=== PATIENT | male | born 1945 | race Caucasian/White ===

== ENCOUNTER 2019-09-11 18:20 | Observation (INO) | payer MEDICARE, OTHER ==
[~2019-09-11] VITALS: Ht 172.7 cm; Wt 91.5 kg
[2019-09-11] MEDS ORDERED: MAALOX/HYOSCYAMINE/LIDOCAINE 45 ML BTL PO ONE (18:30)
[2019-09-11] MEDS ORDERED: SODIUM CHLORIDE FLUSH 10ML SYR IVF ONE (18:30)
[2019-09-11] MEDS ORDERED: MAALOX/HYOSCYAMINE/LIDOCAINE 45 ML BTL ONE (18:41)
[2019-09-11 19:03] LABS: BASOPHILS # (AUTO) 0.02 x10^3/uL (0-0.1); BASOPHILS % (AUTO) 0 % (0-1); EOSINOPHILS # (AUTO) 0.12 x10^3/uL (0-0.4); EOSINOPHILS % (AUTO) 1 % (1-7); LYMPHOCYTES # (AUTO) 1.03 x10^3/uL (1-3.4); LYMPHOCYTES % (AUTO) 11 % (22-44); MD NO; MEAN CORPUSCULAR HEMOGLOBIN 29.7 pg (27.5-34.5); MEAN CORPUSCULAR HGB CONC 32.7 g/dL (33.2-36.2); MEAN CORPUSCULAR VOLUME 90.9 fL (81-97); MEAN PLATELET VOLUME 8.9 fL (7.4-10.4); MONOCYTES # (AUTO) 0.59 x10^3/uL (0.2-0.8); MONOCYTES % (AUTO) 6 % (2-9); NEUTROPHILS # (AUTO) 7.79 x10^3/uL (1.8-6.8); NEUTROPHILS % (AUTO) 82 % (42-75); PLATELET COUNT 142 x10^3/uL (130-400)
[2019-09-11 19:06] LABS: INTERNATIONAL NORMALIZED RATIO 0.97 (0.93-1.1); PROTHROMBIN TIME 10.3 Seconds (9.6-11.5)
[2019-09-11 19:08] LABS: ALANINE AMINOTRANSFERASE 26 U/L (12-78); ALBUMIN 3.2 g/dL (3.4-5.0); ANION GAP 5 mmol/L (5-15); CALCIUM 9.2 mg/dL (8.5-10.1); CHLORIDE 113 mmol/L (98-107); CREATININE 1.94 mg/dL (0.7-1.3)
[2019-09-11 19:13] LABS: ALKALINE PHOSPHATASE 87 U/L (45-117); BILIRUBIN,TOTAL 0.5 mg/dL (0.2-1.0); TOTAL PROTEIN 6.2 g/dL (6.4-8.2); TROPONIN I < 0.015 ng/mL (0.000-0.045)
[2019-09-11] MEDS ORDERED: MORPHINE SULFATE 4 MG/ML, 1ML ONE (19:41)
[2019-09-11] MEDS ORDERED: LORazepam 2 MG/ML, 1ML ONE (19:42)
--- NOTE | 2019-09-11 19:52 | NUR ---
MEDICATED PER EMAR FOR CONTINUED CHEST/BACK PAIN RATED AT 8/10 REFRACTORY TO GI COCKTAIL
[2019-09-11] MEDS ORDERED: LORazepam 2 MG/ML, 1ML IVPush ONE (20:00)
[2019-09-11] MEDS ORDERED: MORPHINE SULFATE 4 MG/ML, 1ML IVPush ONE (20:00)
--- NOTE | 2019-09-11 20:00 | NUR ---
PAIN IMPROVED TO 2/10 SBP IMPROVED WELL UPDATED ON ESTIMATED POC ORDERED HOSPITAL BED
[2019-09-11] MEDS ORDERED: LISI-170 PO (20:21)
[2019-09-11] MEDS ORDERED: CHOL40002 PO (20:21)
[2019-09-11] MEDS ORDERED: ASPI-496 PO (20:21)
[2019-09-11] MEDS ORDERED: PRED5TAB PO (20:21)
[2019-09-11] MEDS ORDERED: MELA5TAB21 PO (20:21)
[2019-09-11] MEDS ORDERED: TACR1CAP4 PO (20:21)
[2019-09-11] MEDS ORDERED: CALC0.25 PO (20:21)
[2019-09-11] MEDS ORDERED: MYCO500T PO (20:21)
[2019-09-11] MEDS ORDERED: BISO5TAB8 PO (20:21)
[2019-09-11] MEDS ORDERED: OMEP-110 PO (20:21)
[2019-09-11] MEDS ORDERED: DOXA8TAB2 PO (20:21)
[2019-09-11] MEDS ORDERED: SIMV20TA19 PO (20:21)
--- NOTE | 2019-09-11 20:21 | NUR ---
DR. FISCHER (HOSPITALIST) AT BEDSIDE. REPORTS PATIENT ALLOWED TO HAVE CARDIAC DIET DINNER-THEN NPO AT MIDNIGHT
[2019-09-11] MEDS ORDERED: OXYcodone IR 5MG TABLET PO PRN (20:30)
[2019-09-11] MEDS ORDERED: ONDANSETRON 2MG/ML, 2ML IVPush PRN (20:30)
[2019-09-11] MEDS ORDERED: hydrALAzine 20 MG/ML, 1ML IVPush PRN (20:30)
[2019-09-11] MEDS ORDERED: PROMETHAZINE 25 MG/ML, 1ML IM PRN (20:30)
[2019-09-11] MEDS ORDERED: BISACODYL 10 MG SUPP PR PRN (20:30)
[2019-09-11] MEDS ORDERED: morphine SULFATE 10 MG/ML, 1ML IVPush PRN (20:30)
[2019-09-11] MEDS ORDERED: POLYETHYLENE GLYCOL 17 GM PACKET PO PRN (20:30)
[2019-09-11] MEDS ORDERED: DOCUSATE 100 MG CAPSULE PO PRN (20:30)
[2019-09-11] MEDS ORDERED: ONDANSETRON ODT 4 MG PO PRN (20:30)
[2019-09-11] MEDS ORDERED: ACETAMINOPHEN 325 MG TABLET PO PRN (20:30)
[2019-09-11] MEDS ORDERED: NITROGLYCERIN 0.4 MG BOTTLE (25 TABS) SL PRN (20:30)
[2019-09-11] MEDS ORDERED: DOXAZOSIN 2MG TABLET PO SCH (21:00)
[2019-09-11] MEDS ORDERED: MELATONIN 5 MG TABLET PO SCH (21:00)
[2019-09-11] MEDS ORDERED: SIMVASTATIN 20 MG TABLET PO SCH (21:00)
[2019-09-11 21:11] LABS: FREE T4 (FREE THYROXINE) 1.2 ng/dL (0.76-1.46)
--- NOTE | 2019-09-11 21:48 | NUR ---
PATIENT REPORTS HE USES BIPAP 02/01-AALIYAH MADE AWARE-TO CONSULT RT
[2019-09-11] MEDS ORDERED: ALLO100T30 PO (23:24)
[2019-09-11] MEDS: HEPARIN 5,000 UNITS/ML, 1ML SQ SCH (23:56)
[2019-09-11] MEDS: TACROLIMUS 1 MG CAPSULE PO SCH (23:57)
[2019-09-12 00:18] LABS: MICROSCOPIC AUTO
[2019-09-12 00:21] VITALS: BP 180/79
[2019-09-12 00:23] LABS: CULTURE INDICATED? NO
[2019-09-12 02:04] LABS: TROPONIN I < 0.015 ng/mL (0.000-0.045)
[2019-09-12] MEDS ORDERED: ATENOLOL 50 MG TABLET PO SCH (06:00)
[2019-09-12] MEDS ORDERED: ASPIRIN 325 MG TABLET EC PO SCH (06:00)
[2019-09-12 06:08] VITALS: BP 147/83
[2019-09-12 07:20] VITALS: BP 155/90
[2019-09-12] MEDS: HEPARIN 5,000 UNITS/ML, 1ML SQ SCH (08:50)
[2019-09-12] MEDS: TACROLIMUS 1 MG CAPSULE PO SCH (08:50)
[2019-09-12] MEDS ORDERED: LISINOPRIL 10 MG TABLET PO SCH (09:00)
[2019-09-12] MEDS ORDERED: CALCITRIOL 0.25 MCG CAPSULE PO SCH (09:00)
[2019-09-12] MEDS ORDERED: OMEPRAZOLE 20 MG CAPSULE.DR PO SCH (09:00)
[2019-09-12] MEDS ORDERED: CHOLECALCIFEROL 5,000u TAB PO SCH (09:00)
[2019-09-12] MEDS ORDERED: REGADENOSON 0.4 MG/5 ML SYRINGE ONE (09:28)
[2019-09-12 12:59] LABS: BASOPHILS # (AUTO) 0.06 x10^3/uL (0-0.1); BASOPHILS % (AUTO) 1 % (0-1); EOSINOPHILS # (AUTO) 0.02 x10^3/uL (0-0.4); EOSINOPHILS % (AUTO) 0 % (1-7); LYMPHOCYTES # (AUTO) 1.39 x10^3/uL (1-3.4); LYMPHOCYTES % (AUTO) 13 % (22-44); MD NO; MEAN CORPUSCULAR HEMOGLOBIN 29.7 pg (27.5-34.5); MEAN CORPUSCULAR HGB CONC 32.5 g/dL (33.2-36.2); MEAN CORPUSCULAR VOLUME 91.3 fL (81-97); MEAN PLATELET VOLUME 9.6 fL (7.4-10.4); MONOCYTES # (AUTO) 0.75 x10^3/uL (0.2-0.8); MONOCYTES % (AUTO) 7 % (2-9); NEUTROPHILS # (AUTO) 8.39 x10^3/uL (1.8-6.8); NEUTROPHILS % (AUTO) 79 % (42-75); PLATELET COUNT 155 x10^3/uL (130-400); RED BLOOD COUNT 4.71 x10^6/uL (4.38-5.82); RED CELL DISTRIBUTION WIDTH 13.9 % (9.4-14.8)
[2019-09-12 13:38] LABS: CHLORIDE 109 mmol/L (98-107)
[2019-09-12 13:50] LABS: ALANINE AMINOTRANSFERASE 20 U/L (12-78); ALBUMIN 3.2 g/dL (3.4-5.0); ALKALINE PHOSPHATASE 83 U/L (45-117); ANION GAP 4 mmol/L (5-15); BILIRUBIN,TOTAL 0.9 mg/dL (0.2-1.0); CALCIUM 9.5 mg/dL (8.5-10.1); CHOLESTEROL, TOTAL 127 mg/dL (140-239); CREATININE 1.86 mg/dL (0.7-1.3); HDL CHOL % 33 % (26-37); HDL CHOLESTEROL (DIRECT) 42 mg/dL (40-60); LDL CHOLESTEROL,CALCULATED 41 mg/dL (54-169); TOTAL PROTEIN 6.1 g/dL (6.4-8.2); TRIGLYCERIDES 222 mg/dL (50-200); VLDL CHOLESTEROL 44 mg/dL (0-25)
[2019-09-12 13:54] LABS: TROPONIN I < 0.015 ng/mL (0.000-0.045)
[2019-09-12 14:22] VITALS: BP 160/97
== END 2019-09-12 18:21 | disposition home or self-care (01) ==
LOC: ED 20:38 → INTOOBSV 21:46 → EDIP 21:46 → 5SO 22:47
PROVIDERS: ADMIT Internal Medicine; ATTEND Internal Medicine
DX: R07.89 Other chest pain (principal); I10 Essential (primary) hypertension; I45.10 Unspecified right bundle-branch block; K21.9 Gastro-esophageal reflux disease without esophagitis; J92.9 Pleural plaque without asbestos; E78.5 Hyperlipidemia, unspecified; R07.2 Precordial pain; Z94.0 Kidney transplant status; Z79.82 Long term (current) use of aspirin; Z79.899 Other long term (current) drug therapy
CPT/HCPCS: 36415; 71045; 71250; 78452; 80053; 80061; 81001; 83036; 83690; 83735; 84439; 84443; 84484; 85025; 85610; 93017; 93306; 96372; 96374; 96375; 99285; A9502; G0378; J1644; J2060; J2270; J2785; J7507; J7512; J7517